=== PATIENT | male | born 1940 | race Caucasian/White ===

== ENCOUNTER → 2016-04-01 | Outpatient (CLI) | payer MEDICARE, BC | LOC: PCVCCLINIC 11:40 | PROVIDERS: ATTEND Internal Medicine | DX: I25.10 Atherosclerotic heart disease of native coronary artery without angina pectoris (principal); I35.0 Nonrheumatic aortic (valve) stenosis; E78.5 Hyperlipidemia, unspecified; I49.3 Ventricular premature depolarization; I65.29 Occlusion and stenosis of unspecified carotid artery; I12.9 Hypertensive chronic kidney disease with stage 1 through stage 4 chronic kidney disease, or unspecified chronic kidney disease; N18.9 Chronic kidney disease, unspecified | CPT/HCPCS: 80061; 93005; G0463 ==

== ENCOUNTER → 2016-08-26 | Outpatient (CLI) | payer MEDICARE, BC ==
--- NOTE | 2016-08-26 14:21 | PCVCIMAG ---
APPROVED REPORT Study performed: 08/26/2016 13:00:50 EXAM: Comprehensive 2D, Doppler, and color-flow Echocardiogram Status: routine Other Information Study Quality: Adequate Indications Dyspnea CAD Aortic Stenosis 2D Dimensions LVEF(%): 60.72 (>50%) IVSd: 14.98 (7-11mm)LVOT Diam: 20.26 (18-24mm) LVDd: 52.55 mm PWd: 11.77 (7-11mm)Ascending Ao: 37.04 (22-36mm) LVDs: 35.36 (25-40mm) Left Atrium: 41.89 (27-40mm) Aortic Root: 38.05 mm LV Single Plane 4CH: 53.91 % LV Single Plane 2CH: 59.05 %Benavides's LVEF: 56.48 % Biplane EF: 56.7 % Volumes Left Atrial Volume (Systole) Single Plane 4CH: 84.83 mLSingle Plane 2CH: 124.08 mL LA ESV Index: 56.00 mL/m2 Aortic Valve AoV Peak Jake.: 2.77 m/s AO Peak Gr.: 30.69 mmHgLVOT Max P.87 mmHg AO Mean Gr.: 15.25 mmHgLVOT Mean P.78 mmHg AO V2 Mean: 1.82 m/sLVOT Max V: 0.98 m/s AO V2 VTI: 67.25 cm NEMO (VTI): 1.14 [id number] V1 VTI: 23.77 cm NEMO Vmax: 1.14 cm2 AI Vmax: 4.36 m/s AI [place]: 2.22 m/s2 AI PHT: 570.27 ms Mitral Valve E/A Ratio: 0.7 MV Decel. Time: 423.44 ms MV E Max Jake.: 0.84 m/s MV A Jake.: 1.16 m/s MV PHT: 122.80 ms IVRT: 124.57 ms Pulmonary Valve PV Peak Jake.: 0.81 m/sPV Peak Gr.: 2.61 mmHg Pulmonary Vein P Vein S: 0.62 m/sP Vein A: 0.36 m/s P Vein D: 0.51 m/sP Vein A Dur.: 145.3 msec P Vein S/D Ratio: 1.22 Left Ventricle The left ventricle is normal size. There is normal LV segmental wall motion. Mild concentric left ventricular hypertrophy. Left ventricular systolic function is normal. LVEF is 55-60%. Grade I - abnormal relaxation pattern. Right Ventricle The right ventricle is normal size. The right ventricular systolic function is normal. Atria Left atrium is normal The right atrium size is normal. Aortic Valve The aortic valve is moderately sclerotic, trileaflet. Mild to moderate aortic regurgitation. There is no evidence of mild aortic valve stenosis. Calculated aortic valve area is 1.1 cm2 with maximum pressure gradient of 31 mmHg and mean pressure gradient of 15 mmHg. Mitral Valve The mitral valve is normal in structure. Moderate mitral regurgitation. No evidence of mitral valve stenosis. Tricuspid Valve The tricuspid valve is normal in structure. There is no tricuspid valve regurgitation noted. Pulmonic Valve The pulmonary valve is normal in structure. There is mild pulmonic valvular regurgitation. Great Vessels The aortic root is normal in size. IVC is normal in size and collapses with >50% inspiration Pericardium There is no pericardial effusion. <Conclusion> Left ventricular systolic function is normal. Mild concentric left ventricular hypertrophy. There is normal LV segmental wall motion. LVEF is 55-60%. Grade I diastolic dysfunction The aortic valve is moderately sclerotic, trileaflet. Mild to moderate aortic regurgitation. Mild aortic valve stenosis. Calculated aortic valve area is 1.1 cm2 with maximum pressure gradient of 31 mmHg and mean pressure gradient of 15 mmHg. The mitral valve is normal in structure. Moderate mitral regurgitation. There is no pericardial effusion.
--- NOTE | 2016-08-26 15:09 | PCVCIMAG ---
APPROVED REPORT Indications Stenosis Risk Factors Hypertension: Hyperlipidemia Doppler Spectral Velocity Analysis PSV / EDVPSV / EDV ECA (R) 177 / 7 cm/sECA (L) 151 / 5 cm/s dICA (R) 59 / 15 cm/sdICA (L) 50 / 13 cm/s Lorenzo (R) 56 / 18 cm/smICA (L) 108 / 20 cm/s pICA (R) 49 / 11 cm/spICA (L) 115 / 23 cm/s Bulb (R) 55 / 8 cm/sBulb (L) 76 / 9 cm/s dCCA (R) 69 / 6 cm/sdCCA (L) 71 / 12 cm/s mCCA (R) 68 / 8 cm/smCCA (L) 74 / 11 cm/s Vert (R) 58 / 11 cm/sVert (L) 43 / 8 cm/s ICA/CCA 0.86ICA/CCA 1.62 Basic Measurements Blood Pressure: Pulses: Right Left RightLeft Brachial(Sitting) 180/[id number]/82mmHgTemporal Real Time B-Mode Imaging AreaRight Plaque DescriptionLeft Plaque Description VertebralAntegradeAntegrade Findings The right carotid bulb has moderate calcified plaque. The right proximal internal carotid artery shows <40% stenosis. The right common carotid artery shows no significant stenosis. The right external carotid artery shows >50% stenosis. The left carotid bulb has moderate calcified plaque. The left proximal internal carotid artery shows 40-50% stenosis. The left common carotid artery shows no significant stenosis. The left external carotid artery shows >50% stenosis. The left carotid bulb has plaque. The left proximal internal carotid artery shows stenosis. The left common carotid artery shows stenosis. The left external carotid artery shows stenosis. Conclusion <40% stenosis of the right internal carotid artery with plaque. 40-50% stenosis of the left internal carotid artery with plaque. Antegrade vertebral flow
== END | disposition home or self-care (01) ==
LOC: PCVCIMAG 12:50
PROVIDERS: ATTEND Internal Medicine
DX: I08.0 Rheumatic disorders of both mitral and aortic valves (principal); I25.10 Atherosclerotic heart disease of native coronary artery without angina pectoris; I12.9 Hypertensive chronic kidney disease with stage 1 through stage 4 chronic kidney disease, or unspecified chronic kidney disease; N18.9 Chronic kidney disease, unspecified; E78.5 Hyperlipidemia, unspecified; I49.3 Ventricular premature depolarization; I65.23 Occlusion and stenosis of bilateral carotid arteries; E78.00 Pure hypercholesterolemia, unspecified; Z95.1 Presence of aortocoronary bypass graft; Z87.891 Personal history of nicotine dependence; Z79.82 Long term (current) use of aspirin; Z79.899 Other long term (current) drug therapy
CPT/HCPCS: 80061; 93306; 93880; G0463

== ENCOUNTER → 2017-03-04 | Outpatient (CLI) | payer MEDICARE, BC | END | disposition home or self-care (01) | LOC: PCVCCLINIC 14:32 | PROVIDERS: ATTEND Internal Medicine | DX: I25.10 Atherosclerotic heart disease of native coronary artery without angina pectoris (principal); I12.0 Hypertensive chronic kidney disease with stage 5 chronic kidney disease or end stage renal disease; N18.6 End stage renal disease; I65.23 Occlusion and stenosis of bilateral carotid arteries; I49.3 Ventricular premature depolarization; E78.5 Hyperlipidemia, unspecified; I35.0 Nonrheumatic aortic (valve) stenosis; Z99.2 Dependence on renal dialysis; Z87.891 Personal history of nicotine dependence; Z79.899 Other long term (current) drug therapy | CPT/HCPCS: 80061; 93005; G0463 ==